=== PATIENT | female | born 1995 | race African-American/Black ===

== ENCOUNTER → 2023-09-29 | Outpatient (CLI) | payer BC, SELFPAY ==
[2023-10-03 12:09] LABS: HPV APTIMA, High Risk Negative (Negative)
== END | disposition home or self-care (01) ==
LOC: LABSPEC 16:03
PROVIDERS: Referring Provider Nurse Practitioner Family; Visit Provider Nurse Practitioner Family
DX: Z12.4 Encounter for screening for malignant neoplasm of cervix (principal)
CPT/HCPCS: 87624; 88175; G0145

== ENCOUNTER → 2024-01-07 | Outpatient (CLI) | payer BC, SELFPAY ==
[2024-01-07 10:22] LABS: Absolute Lymphocyte Count 1.21 X10^3/uL (0.83-4.51); Absolute Neutrophil Count 3.4 X10^3/uL (2.0-7.7); Basophil# 0.01 X10^3/uL; Basophil% 0.2 % (0-1); Eosinophil# 0.02 X10^3/uL; Eosinophils% 0.4 % (0-5); Hematocrit 35.7 % (37-47); Hemoglobin 11.8 g/dL (12.0-15.0); Lymphocyte # 1.21 X10^3/ul (0.83-4.51); Lymphocyte % 24.3 % (19-41); Mean Corp Hgb Conc 33.1 g/dL (32-36); Mean Corpuscular Hgb 28.4 pg (27.0-32.0); Mean Corpuscular Volume 85.8 fL (81-99); Mean Platelet Vol. 10.7 fl (6.2-12.0); Monocyte# 0.31 X10^3/uL; Monocyte% 6.2 % (0-10); NRBC Flagged by Analyzer 0 % (0-5); Neutrophil % 68.5 % (47-70); Platelet Count 267 K/mm3 (150-450); RBC Distribution Width CV 12.4 % (11.6-14.6); RBC Distribution Width SD 38.8 fl (35.1-43.9); Red Blood Count 4.16 M/mm3 (4.2-5.4)
[2024-01-07 11:38] LABS: HIV - WCH Non-Reactive (Nonreactive); Hepatitis B Surface Antigen Non-Reactive (Nonreactive); Hepatitis C Antibody Non-Reactive (Nonreactive); Rubella IgG Reactive (Nonreactive); Syphilis Antibodies Non-reactive
[2024-01-07 13:03] LABS: Amphetamine Urine VISTA NEGATIVE (<1000 ng/mL); Barbiturate Urine VISTA NEGATIVE (< 200 ng/mL); Benzodiazepine Urine VISTA NEGATIVE (< 200 ng/mL); Cocaine Urine VISTA NEGATIVE (< 300 ng/mL); Ecstacy Urine VISTA NEGATIVE (< 500 ng/mL); Methadone Urine VISTA NEGATIVE (< 300 ng/mL); PCP Urine VISTA NEGATIVE (< 25 ng/mL); THC Urine VISTA NEGATIVE (< 50 ng/mL); Vista UDS pH Range 7
[2024-01-08 20:08] LABS: Chlamydia By Nucleic Acid AMP Negative (Negative); Gonococcus By Nucleic Acid AMP Negative (Negative)
== END | disposition home or self-care (01) ==
PROVIDERS: Referring Provider Advanced Practice Midwife; Visit Provider Advanced Practice Midwife
DX: O09.90 Supervision of high risk pregnancy, unspecified, unspecified trimester (principal); O99.320 Drug use complicating pregnancy, unspecified trimester; F12.90 Cannabis use, unspecified, uncomplicated; Z3A.00 Weeks of gestation of pregnancy not specified; Z78.9 Other specified health status
CPT/HCPCS: 36415; 80307; 85025; 86703; 86762; 86780; 86787; 86803; 86850; 86900; 86901; 87086; 87340; 87491; 87591

== ENCOUNTER → 2024-05-06 | Outpatient (CLI) | payer BC, SELFPAY ==
[2024-05-06 13:01] LABS: Absolute Lymphocyte Count 1.19 X10^3/uL (0.83-4.51); Absolute Neutrophil Count 6.7 X10^3/uL (2.0-7.7); Basophil# 0.01 X10^3/uL; Basophil% 0.1 % (0-1); Eosinophil# 0.04 X10^3/uL; Eosinophils% 0.5 % (0-5); Hematocrit 34.5 % (37-47); Hemoglobin 11.7 g/dL (12.0-15.0); Lymphocyte # 1.19 X10^3/ul (0.83-4.51); Mean Corp Hgb Conc 33.9 g/dL (32-36); Mean Corpuscular Hgb 29.5 pg (27.0-32.0); Mean Corpuscular Volume 86.9 fL (81-99); Mean Platelet Vol. 10.8 fl (6.2-12.0); Monocyte# 0.55 X10^3/uL; Monocyte% 6.5 % (0-10); NRBC Flagged by Analyzer 0 % (0-5); Neutrophil # 6.65 X10^3/uL (2.7-7.7); Neutrophil % 78.2 % (47-70); Platelet Count 221 K/mm3 (150-450); RBC Distribution Width CV 13.3 % (11.6-14.6); RBC Distribution Width SD 42.2 fl (35.1-43.9); Red Blood Count 3.97 M/mm3 (4.2-5.4); White Blood Count 8.5 K/mm3 (4.4-11.0)
[2024-05-06 14:13] LABS: Glucose Challenge Gest 1H 50g 103 mg/dL (70-140)
[2024-05-07 10:03] LABS: HIV - WCH Non-Reactive (Nonreactive); Syphilis Antibodies Non-reactive
== END | disposition home or self-care (01) ==
LOC: LAB 12:36
PROVIDERS: Referring Provider Advanced Practice Midwife; Visit Provider Advanced Practice Midwife
DX: O09.92 Supervision of high risk pregnancy, unspecified, second trimester (principal); Z13.1 Encounter for screening for diabetes mellitus; Z3A.00 Weeks of gestation of pregnancy not specified
CPT/HCPCS: 36415; 82950; 85025; 86703; 86780

== ENCOUNTER → 2024-07-11 | Outpatient (CLI) | payer BC, SELFPAY | END | disposition home or self-care (01) | PROVIDERS: Visit Provider Advanced Practice Midwife | DX: O09.93 Supervision of high risk pregnancy, unspecified, third trimester (principal); Z3A.00 Weeks of gestation of pregnancy not specified | CPT/HCPCS: 87077; 87081 ==

== ENCOUNTER 2024-08-06 01:03 | Outpatient (CLI) | payer BC, SELFPAY ==
[2024-08-06 01:20] VITALS: BP 126/68; PULSE 79; RESP 14; TEMP 36.4
[2024-08-06 01:21] VITALS: PULSE 84; O2SAT 98
[2024-08-06 01:23] VITALS: BMI 30.9
[2024-08-06] MEDS: DiphenhydrAMINE 25 MG Capsule PO (07:20)
--- NOTE | 2024-08-06 17:54 | OB.TRI.PN ---
Progress Notes Date of Service: 08/06/24 Progress Note: Patient presents for triage evaluation secondary to uterine contractions at 39 weeks FHT: 135 Moderate variability reactive no decelerations category I tracing [place]: irregular Contractions Assessment and plan: therapeutic rest, minimal cervical change, would like minimal intervention, Reactive NST, reassuring maternal and status patient discharged to home to follow-up in office or with active labor. See problem list details for additional plan information. Charges/Coding Multi Select Codes Visit Charges Office Visit/Consults: 58164 OV L3 Est 20min Urinary/Genital Urinary/Genital CPT Codes: 01160-52 non-stress test Interp Assessment & Plan (1) Uterine contractions: COMMENT: minimal cervical change, d/c home (2) Positive GBS test: COMMENT: treat in labor (3) Marijuana smoker, episodic: COMMENT: last used 2 months ago, Not using now. Informed that random tox screens will occur during . (4) Supervision of high-risk : QUALIFIERS: Trimester: third trimester Qualified Code(s): O09.93 - Supervision of high risk , unspecified, third trimester COMMENT: PRR,, MARGY 08/09/24, boy Radha Vidal (5) : QUALIFIERS: Weeks of gestation: 39 weeks Qualified Code(s): Z3A.39 - 39 weeks gestation of COMMENT: discussed ntd, NIPT & Carrier testing declined.
== END 2024-08-06 11:30 | disposition home or self-care (01) ==
LOC: WPOUT 01:07 → WP 01:07
PROVIDERS: Visit Provider Advanced Practice Midwife
DX: O47.1 False labor at or after 37 completed weeks of gestation (principal); O99.820 Streptococcus B carrier state complicating pregnancy; O99.323 Drug use complicating pregnancy, third trimester; Z3A.39 39 weeks gestation of pregnancy; F12.90 Cannabis use, unspecified, uncomplicated
CPT/HCPCS: 59025; 59050; 99221; G0378

== ENCOUNTER 2024-08-07 08:31 | Inpatient (IN) | payer BC, SELFPAY ==
[2024-08-06 22:14] VITALS: BMI 30.4
[2024-08-06 22:27] VITALS: BP 143/94; PULSE 104
[2024-08-06 22:55] LABS: ROM Internal Control Test YES-OK TO RESULT pt. (Internal QC); ROM Patient Test Negative (Negative); Record Kit Lot#, ROM+ K3358
[2024-08-06] MEDS: LACTATED RINGERS 500 ML 999 ML IV (23:03)
[2024-08-06] MEDS: DiphenhydrAMINE 50 MG/ML Syringe IV (23:20)
[2024-08-06] MEDS: Acetaminophen 500 MG Tablet 1000 MG PO (23:20)
[2024-08-07] VITALS (54 sets, daily range): BP systolic 97–132; BP diastolic 49–82; PULSE 67–106; RESP 14–16; TEMP 36.5–37.3; O2SAT 96–100
[2024-08-07] MEDS: fentaNYL 100 MCG/2 ML Ampul 50 MCG IV ×3 (01:08→05:38)
--- NOTE | 2024-08-07 08:38 | HP.PCM.OB_ITS ---
HPI - General General Date of Admission: 08/07/24 Date of Service: 08/07/24 HPI Narrative ASPEN HEWITT, is a 29 F 40.0 weeks gestation who presents to unit in active labor Maternal Data Information MARGY Calculator Estimated Delivery Date Method Current WG Current Estimate 08/07/24 Ultrasound #1 40w 0d Other Estimates 08/09/24 LMP (Certain) 39w 5d Final MARGY: 08/07/24 Final MARGY Source: US >20 weeks Gestational age: 40.0 PFSH PFSH Medical History Screening for cervical cancer Hyperlipidemia Hypercholesterolemia Home Medications ?Medication ?Instructions ?Recorded ?Last Taken ?Type multivit-min no.71-iron fum 28 1 cap PO DAILY pregnanc y 12/25/23 08/06/24 History mg-folate no.1 1 mg-dha 300 mg capsule (PNV-Morris) Allergy/AdvReac Type Severity Reaction Status Date / Time No Known Allergies Allergy Verified 08/06/24 23:07 Family History Father Diabetes Grandfather Diabetes Heart disease Mother Hypertension Surgical History S/P wisdom tooth extraction Social History adopted: No household members: spouse housing: house current occupational status: employed 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 [employer] current occupational exposures/hazards: No pets and animals: Yes pets and animals: dog(s) leisure activities: sports and exercise history of recent travel: Yes ([place] , [facility] [place] 01/26, [place] 08/27) out of state: Yes out of country: Yes sexually active: Yes Smoking Status: Never smoker alcohol intake: current alcohol intake frequency: holidays/special occasions only details: Not while substance use type: marijuana well-balanced diet: daily or most days caffeine: Yes Type: coffee Number of servings: 1 eating out: rarely or never during the past year weight has: remained stable what type of physical activity do you participate in: weight training and other details: crossfit frequency: 5-6 times per week duration: 45-60 minutes/day steven/evangelical: Worship seatbelt use: always do you feel safe at home: Yes 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 extensive counseling regarding antibiotics for GBS. pain management options preferred: open to nitrous cut cord/dad catch: yes : yes PP control planned: discussed discussed possible routes of delivery and associated risks: discussed possible delivery modalities and possible indications for each including R/B/A of , VAVD, and CS. questions answered. special requests: please provide in depth counseling for any possible labor intervention to both to and , prefer natural support and minimal intervention Plans Covid status: [] Flu vaccine: declined Tdap vaccine: declines Rhogam:NA LARC form signed: yes movement and labor precautions reviewed. Problem list reviewed and updated with the most current plan of care details and appropriate orders placed. Relevant counseling for the gestational age provided. Continue routine care and follow up unless otherwise noted in visit notes/problem list details OB Flowsheet Initial Weight: 142 lb Date -?-?-?-?-?-?-?-?-?-?-?-?- EGA Weight BP Urine Prot -?-?-?-?-?-?-?-?-?-?-?-?- Glucose FHR FuHt Pres Dilation -?-?-?-?-?-?-?-?-?-?-?-?- Effaced St Visit Note 01/07/24 -?-?-?-?-?-?-?-?-?-?-?-?- 9w 4d 142 lb (+0 oz) 115/75 -?-?-?-?-?-?-?-?-?-?-?-?- 180 -?-?-?-?-?-?-?-?-?-?-?-?- KW- CRL cons wit h dates. declines NIPT at this time. 02/04/24 -?-?-?-?-?-?-?-?-?-?-?-?- 13w 4d 141 lb (-16 oz) 108/67 -?-?-?-?-?-?-?-?-?-?-?-?- 150 -?-?-?-?-?-?-?-?-?-?-?-?- SM- no vb crampi ng 03/01/24 -?-?-?--?-?-?-?-?-?-?-?-?- 17w 2d 144 lb 4 oz (+2 lb 4 oz) 112/68 Negative -?-?-?-?-?-?-?-?-?-?-?-?- Negative 145 -?-?-?-?-?-?-?-?-?-?-?-?- MH-No VB. No flu tters yet. Feels well. 04/05/24 -?-?-?-?-?-?-?-?-?-?-?-?- 22w 2d 151 lb 8 oz (+9 lb 8 oz) 108/68 Negative -?-?-?-?-?-?-?-?-?-?-?-?- Negative 150 22 -?-?-?-?-?-?-?-?-?-?-?-?- KW- no vb/lof/ct x. flutters noted. has repeat US for low lying placenta. 05/06/24 -?-?-?-?-?-?-?-?-?-?-?-?- 26w 5d 157 lb (+15 lb) 118/70 Negative -?-?-?-?-?-?-?-?-?-?-?-?- Negative 135 26 -?-?-?-?-?-?-?--?-?-?-?-?- LC- no vb/ctx/lo f. good fm. no concerns has rpt us scheduled for 05/17. glucola today. pending. 05/18/24 -?-?-?-?-?-?-?-?-?-?-?-?- 28w 3d 159 lb 4 oz (+17 lb 4 oz) 106/64 Negative -?-?-?-?-?-?-?-?-?-?-?-?- Negative 148 28 -?-?-?-?-?-?-?-?-?-?-?-?- MH-No VB, LOF. G ood FM. Reviewed MFM US:low lying placenta resolved. Larc. Tdap declines 06/02/24 -?-?-?-?-?-?-?-?-?-?-?-?- 30w 4d 160 lb 6 oz (+18 lb 6 oz) 113/74 Negative -?-?-?-?-?-?-?-?-?-?-?-?- Negative 145 30 -?-?-?-?-?-?-?-?-?-?-?-?- JV- no lof, vagi nal bleeding or dec fm. 06/15/24 -?-?-?-?-?-?-?-?-?-?-?-?- 32w 3d 163 lb 4 oz (+21 lb 4 oz) 113/66 Negative -?-?-?-?-?-?-?-?-?-?-?-?- Negative 140 31 -?-?-?-?-?-?-?-?-?-?-?-?- SM- no vb lof go od fm n oregualr ctx 06/29/24 -?-?-?-?-?-?-?-?-?-?-?-?- 34w 3d 166 lb 2 oz (+24 lb 2 oz) 115/74 Trace -?-?-?-?-?-?--?-?-?-?-?-?- Negative 135 34 -?-?-?-?-?-?-?-?-?-?-?-?- JV- no lof, vagi nal bleeding, or dec fm. no complaints. GBS next visit. 07/11/24 -?-?-?--?-?-?-?-?-?-?-?-?- 36w 1d 168 lb 8 oz (+26 lb 8 oz) 116/76 Negative -?-?-?-?-?-?-?-?-?-?-?-?- Negative 140 35 0 -?-?-?-?-?-?-?-?-?-?--?-?- KW- no vb/lof/ct x. good fm. discussed preferences today. FOB likely will need a lot of prepping for changes in plan. 07/20/24 -?-?-?-?-?-?-?-?-?-?-?-?- 37w 3d 170 lb (+28 lb) 97/55 Negative -?-?-?-?-?-?-?-?-?-?-?-?- Negative 140 36 -?-?-?-?-?-?-?-?-?-?-?-?- SM- no vb lof SM- no vb lof good fm no reg ular ctx discussed importance of PCN for GBS 07/27/24 -?-?-?-?-?-?-?-?-?-?-?-?- 38w 3d 171 lb 6 oz (+29 lb 6 oz) 128/78 Negative -?-?-?-?-?-?-?-?-?-?-?-?- Negative 140 38 Cephalic -?-?-?-?-?-?-?-?-?-?-?-?- JV- no lof, vagi nal bleeding, or dec fm. no complaints. 08/02/24 -?-?-?-?-?-?-?-?-?-?-?-?- 39w 2d 173 lb (+31 lb) 130/77 Negative -?-?-?-?-?-?-?-?-?-?-?-?- Negative 145 39 Cephalic 0 -?-?-?-?-?-?-?-?-?-?-?-?- KW- no vb/lof/ct x. good fm. labor precautions NST FHR Rate Baby A Baseline: 135 Variability:: Moderate Accelerations:: 15 x 15 Decelerations:: None NST Reactive:: Yes FHR Category:: Category I Uterine Activity:: 3-6 minutes ROS Constitutional Constitutional: Denies change in weight, fatigue, fever(s), headache(s), poor appetite or weakness Eyes Eyes: Denies blurry vision, change in vision, floaters, seeing flashes or spots in vision ENT HEENT: Denies dizziness, headache(s), loss taste/smell or sore throat Cardiovascular Cardiovascular: Denies chest pain, dizziness, dyspnea, irregular heart rhythm, lightheadedness, palpitations or rapid heart rate Respiratory/Chest Respiratory/Chest: Denies change in mental status, chest tightness, cough, dyspnea or breast pain Gastrointestinal Gastrointestinal: Denies anorexia, chewing difficulty, constipation, diarrhea or weight changes Genitourinary Genitourinary: Denies difficulty urinating, dysuria, flank pain, genital pain, urinary frequency or urinary urgency Musculoskeletal Musculoskeletal: Denies back pain, difficulty walking, extremity pain, joint pain, muscle cramps or muscle weakness Integumentary Integumentary: Denies lesions or unusual bruising Neurologic Neurologic: Denies abnormal movements, abnormal speech, dizziness, numbness, seizure-like activity, syncope or weakness Psychiatric Psychiatric: Denies behavioral changes, change in appetite, confusion, depression, homicidal ideation, suicidal ideation or suicidal thoughts Endocrine Endocrinology: Denies excessive sweating, polydipsia or polyuria Hematologic/Lymphatic Hematologic/Lymphatic: Denies anemia Allergic/Immunologic Allergic/Immunologic: Denies itchy eyes, lip swelling, throat swelling, tongue swelling or wheezing Vital Signs Vital Signs Vital Signs: 08/06/24 22:27 08/06/24 22:27 08/07/24 00:17 Temperature Temperature Source Pulse Rate 104 H Respiratory Rate Blood Pressure 143/94 H 124/82 H BP Systolic 143 124 BP Diastolic 94 82 Pulse Ox 08/07/24 00:17 08/07/24 04:32 08/07/24 04:32 Temperature Temperature Source Pulse Rate 106 H 86 Respiratory Rate Blood Pressure 125/80 H BP Systolic 125 BP Diastolic 80 Pulse Ox 08/07/24 04:39 08/07/24 04:39 08/07/24 04:39 Temperature 98.2 F Temperature Source Oral Pulse Rate Respiratory Rate 16 Blood Pressure BP Systolic BP Diastolic Pulse Ox 08/07/24 06:04 08/07/24 06:04 08/07/24 07:29 Temperature Temperature Source Pulse Rate 84 Respiratory Rate Blood Pressure 127/72 H BP Systolic 127 BP Diastolic 72 Pulse Ox 98 08/07/24 07:29 08/07/24 07:29 08/07/24 07:29 Temperature Temperature Source Pulse Rate 98 94 Respiratory Rate Blood Pressure BP Systolic BP Diastolic Pulse Ox 98 08/07/24 07:31 08/07/24 07:31 08/07/24 07:31 Temperature Temperature Source Oral Pulse Rate 93 Respiratory Rate 14 Blood Pressure BP Systolic BP Diastolic Pulse Ox 08/07/24 07:31 08/07/24 07:31 Temperature 97.7 F L Temperature Source Pulse Rate Respiratory Rate Blood Pressure BP Systolic BP Diastolic Pulse Ox 98 Weight Weight: 171 lb 8 oz Body Mass Index (BMI) 30.4 Physical Exam Const alert, oriented x3 and no apparent distress General Appearance: cooperative Orientation / Consciousness: awake HEENT normocephalic Neck full ROM Lymph Lymphatic: no lymphadenopathy noted Chest inspection of chest normal Resp normal respiratory effort and normal air movement Effort and Inspection: able to speak in complete sentences and symmetric chest movement GI soft to palpation and non-tender Inspection: gravid Palpation: soft; Negative for tender external exam normal Manual OB Exam: dilated 4, effaced 90 and station -1 Back/Spine normal to inspection Extremity normal to inspection and full ROM Skin no rashes or lesions noted Psych mental status grossly normal Appearance: grossly normal Speech: normal speech Labs Labs Labs: Blood Type AB POSITIVE Antibody Screen NEGATIVE Hct 34.5 % (37-47) L Hgb 11.7 g/dL (12.0-15.0) L Pap Smear Negative Syphilis Total Ab Non-reactive VZV IgG Antibody Rubella IgG Antibody Reactive (Nonreactive) Hep Bs Antigen Non-Reactive (Nonreactive) Hepatitis C Antibody Non-Reactive (Nonreactive) Chlamydia DNA (CHRISTELLE) Negative (Negative) N.gonorrhoeae DNA (CHRISTELLE) Negative (Negative) HIV 1&2 Antibody Non-Reactive (Nonreactive) Glucose 1 Hr 50 gm 103 mg/dL (70-140) Assessment & Plan (1) Active labor: PLAN: Patient presents IAL, plan expectant management for , pitocin/AROM PRN if needed. Pain management: plans no epidural. GBS positive-declines treatment Management of any complications: none I have reviewed the [facility] and made any clinically relevant updates. Dr Humphries aware of assessment, plan and admission. agrees with above (2) Uterine contractions: COMMENT: minimal cervical change, d/c home (3) Positive GBS test: COMMENT: treat in labor (4) Marijuana smoker, episodic: COMMENT: last used 2 months ago, Not using now. Informed that random tox screens will occur during . (5) Supervision of high-risk : QUALIFIERS: Trimester: third trimester Qualified Code(s): O09.93 - Supervision of high risk , unspecified, third trimester COMMENT: PRR,, MARGY 08/09/24, boy Radha Vidal (6) : QUALIFIERS: Weeks of gestation: 39 weeks Qualified Code(s): Z3A.39 - 39 weeks gestation of COMMENT: discussed ntd, NIPT & Carrier testing declined. Charges/Coding Multi Select Codes Urinary/Genital Urinary/Genital CPT Codes: No Charge
[2024-08-07 09:31] LABS: Absolute Neutrophil Count 10.4 X10^3/uL (2.0-7.7); Basophil# 0.01 X10^3/uL; Basophil% 0.1 % (0-1); Differential Indicated SCAN CRITERIA MET; Hematocrit 38.5 % (37-47); Lymphocyte % 8.2 % (19-41); Mean Corp Hgb Conc 33.8 g/dL (32-36); Mean Corpuscular Hgb 30.2 pg (27.0-32.0); Mean Corpuscular Volume 89.3 fL (81-99); Monocyte# 0.75 X10^3/uL; Monocyte% 6.2 % (0-10); NRBC Flagged by Analyzer 0 % (0-5); Neutrophil # 10.35 X10^3/uL (2.7-7.7); Neutrophil % 84.8 % (47-70); POSITIVE MORPHOLOGY YES; RBC Distribution Width CV 12.9 % (11.6-14.6); RBC Distribution Width SD 42.4 fl (35.1-43.9); Red Blood Count 4.31 M/mm3 (4.2-5.4); White Blood Count 12.2 K/mm3 (4.4-11.0)
[2024-08-07 09:32] LABS: Differential Comment SCANNED; Platelet Estimate ADEQUATE (ADEQ)
[2024-08-07] MEDS: Lactated Ringers 1,000 ML 999 ML IV (11:16)
[2024-08-07] MEDS: Lactated Ringers 1,000 ML 200 ML IV ×3 (11:47→19:13)
[2024-08-07 12:03] LABS: Platelet Count 201 K/mm3 (150-450)
[2024-08-07 12:13] LABS: Amphetamine Urine NEGATIVE (<1000 ng/mL); Barbiturate Urine NEGATIVE (< 200 ng/mL); Benzodiazepine Urine NEGATIVE (< 200 ng/mL); Cocaine Urine NEGATIVE (< 300 ng/mL); Methadone Urine NEGATIVE (< 300 ng/mL); Opiates Urine NEGATIVE (< 300 ng/mL); PCP Urine NEGATIVE (< 25 ng/mL); THC Urine NEGATIVE (< 50 ng/mL)
[2024-08-07] MEDS: fentaNYL-bupivacaine (epidural) 100 ML BAG EPIDURAL ×2 (12:30→17:01)
--- NOTE | 2024-08-07 13:59 | PN_ITS ---
Progress Note comfortable with epidural current tracing: FHT: 135 Moderate variability reactive occasional late decelerations after epidural placement resolved without intervention category II tracing. overall reassuring [place]: 6-8 minute Contractions Membranes:intact SVE:4/60/-2 per nursing and cervix feels swollen Discussion with patient about IV Benadryl and pitocin. agrees with both. comfortable with epidural A/P: Continue with position changes Titrate pitocin per protocol Epidural per anesthesia Declines ATB for GBS Anticipate Dr Humphries aware of above assessment and agrees with plan of care Assessment & Plan Assessment/Plan (1) Active labor: (2) Uterine contractions: (3) Positive GBS test: (4) Marijuana smoker, episodic: (5) Supervision of high-risk : QUALIFIERS: Trimester: third trimester Qualified Code(s): O09.93 - Supervision of high risk , unspecified, third trimester (6) : QUALIFIERS: Weeks of gestation: 39 weeks Qualified Code(s): Z3A.39 - 39 weeks gestation of Multi Select Codes Urinary/Genital Urinary/Genital CPT Codes: No Charge
[2024-08-07] MEDS: DiphenhydrAMINE 50 MG/ML Syringe IV (14:24)
[2024-08-07] MEDS: Oxytocin 15 Units/NS 250ml 15 UNITS/250 ML IV.SOLN 2 UNITS IV (14:25)
[2024-08-07 15:26] LABS: Syphilis Antibodies Nonreactive (Nonreactive)
--- NOTE | 2024-08-07 17:00 | PCM.PN.BLA ---
Progress Note comfortable with epidural current tracing: FHT: 140 Moderate variability reactive late decelerations category II tracing [place]: 2-6 minutes Contractions Membranes: ruptured for mec. IUPC placed and amnioinfusion started. SVE: reviewed tracing abnormalities since last note: collaboration with Dr Humphries at this time for Cat II FHT tracing. A/P: Continue with position changes Titrate pitocin per protocol Epidural per anesthesia Declines ATB for GBS Anticipate Dr Humphries aware of above assessment and agrees with plan of care Assessment & Plan Assessment/Plan (1) Active labor: (2) Uterine contractions: (3) Positive GBS test: (4) Marijuana smoker, episodic: (5) Supervision of high-risk : QUALIFIERS: Trimester: third trimester Qualified Code(s): O09.93 - Supervision of high risk , unspecified, third trimester (6) : QUALIFIERS: Weeks of gestation: 39 weeks Qualified Code(s): Z3A.39 - 39 weeks gestation of Multi Select Codes Urinary/Genital Urinary/Genital CPT Codes: No Charge
[2024-08-07] MEDS: Amnioinfusion- 0.9% NS 1,000 ML IV.SOLN. 1000 ML INTRA-UTER (17:01)
[2024-08-08] VITALS (17 sets, daily range): BP systolic 85–114; BP diastolic 59–80; PULSE 72–104; RESP 15–18; TEMP 36.3–37.2; O2SAT 98–100
[2024-08-08] MEDS: Cefazolin 2 GM in 0.9% Normal Saline (100mL Bag) 100 ML IV (00:59)
[2024-08-08] MEDS: Azithromycin 500 MG in 0.9% Normal Saline (250mL Bag) 250 ML 255 MG IV (01:12)
--- NOTE | 2024-08-08 01:39 | EX.PCM.OBRPT ---
Assessment & Plan (1) Active labor: (2) Uterine contractions: COMMENT: minimal cervical change, d/c home (3) Positive GBS test: COMMENT: treat in labor (4) Marijuana smoker, episodic: COMMENT: last used 2 months ago, Not using now. Informed that random tox screens will occur during . (5) Supervision of high-risk : QUALIFIERS: Trimester: third trimester Qualified Code(s): O09.93 - Supervision of high risk , unspecified, third trimester COMMENT: PRR,, MARGY 08/09/24, daniel Garcia Vidal (6) : QUALIFIERS: Weeks of gestation: 39 weeks Qualified Code(s): Z3A.39 - 39 weeks gestation of COMMENT: discussed ntd, NIPT & Carrier testing declined. (7) Category II heart rate tracing during labor and delivery: (8) delivery delivered: COMMENT: [facility] recurrent late decels placental insufficiency daniel Garcia 39 Maternal Data Information MARGY Calculator Estimated Delivery Date Method Current WG Current Estimate 08/07/24 Ultrasound #1 40w 1d Other Estimates 08/09/24 LMP (Certain) 39w 6d Operative Report (OB) Details Procedure Type: low transverse Date of Procedure: 08/08/24 Procedure Start Time: 00:51 Procedure Stop Time: 01:27 Pre-Operative Diagnosis: Other Other Pre-Operative diagnosis: see a/p comments Post-Operative Diagnosis: Same as Pre-operative diagnosis Type of Anesthesia: Epidural Special Medications: none Antibiotic Given: Ancef 2 grams IV x1 Drain: Rowe to straight drain Estimated Blood Loss: 900 Fluids Replaced: crystalloid Findings Description of surgery: Patient presented in active labor at 4 cm after a long prodromal stage. Patient was in severe pain and underwent epidural anesthesia. Patient made minimal change and therefore was augmented with Pitocin however she only made it to 4 milliunits of Pitocin and it had to be turned off due to recurrent late decelerations. Throughout the day the fetus was intolerant to multiple position changes. Ultimately the decision was made after multiple attempts to be able to start Pitocin to try and augment labor and arrest of dilation at 4 to 5 cm of dilation was present she developed recurrent late decelerations with minimal variability and was recommended to proceed with a low-transverse . Patient was taken back to the operating room. The patient was placed in the dorsal supine position with leftward tilt. Patient was prepped and draped in the normal sterile fashion. Pfannenstiel skin incision was made with the scalpel and carried through to the underlying layer of fascia with the scalpel. Fascia was nicked in the midline and the incision extended laterally. The rectus bellies were dissected off superiorly and inferiorly with out complication both sharply and bluntly. The peritoneum was entered digitally. The incision was stretched and a low transverse uterine incision was made with the scalpel. The 's head was delivered atraumatically followed by the anterior and posterior shoulders without complication the rest of the infant delivered. The cord was clamped and cut and the was handed off to awaiting nurse. The placenta was delivered spontaneously immediately following and was noted to be intact and have a three-vessel cord. The uterus was exteriorized cleared of all clots and debris, and the incision was closed in a single layer closure using #1 Monocryl. The ovaries and fallopian tubes were noted to be within normal limits. The uterus was returned to the maternal abdomen and gutters were cleared of all clots and debris. The peritoneum was closed with 3-0 Monocryl in a running fashion. Gloves were changed prior to fascial closure. Fascia was closed with 0 PDS in a running fashion. Subcutaneous tissue was copiously irrigated and the skin was closed with 3-0 Monocryl in a subcuticular fashion. There was a small scratch noted on the right superior aspect of the incision which was closed with Dermabond. Mepilex dressing was applied without complication. Patient was taken to recovery in stable condition. It was discussed with the patient that based on the clinical information obtained during this encounter, combined with her history, at this time I would recommend vaginal or delivery for future deliveries if further pregnancies are desired. Surgical findings: Placental insufficiency nl uterus tubes ovaries Presentation: Vertex Amniotic Membrane Rupture Type: Artificial Amniotic Fluid Description: Clear Placental Delivery Description: Spontaneous Specimen collected: Yes Description of specimen(s) removed: placenta and baby Cord Vessel Description: 3 Vessels Delayed Cord Clamping: Yes Streetcar Repairer Helper development intern: Yes Artificial Plastic Eye Maker: Jovanny Banda Tasks completed by first officer and flight instructor: Opening & closing, Retracting and Other (assisting in delivery of the ) Additional food and nutrition services assistant?: No Complications Complications: No Admit VTE Documentation VTE Present on Admission: No VTE Mechan Device Prophylaxis: SCD's Procedures Urinary/Genital [id number]: [id number] Delivery global pkg
--- NOTE | 2024-08-08 01:53 | DCINST_ITS ---
Discharge Instructions Diet Discharge Diet: No restrictions DC O2, CPAP, BIPAP needs Home O2 Discharge instructions: No Dressing / Incision Discharge Activity: May Not Drive (for 2 weeks or while taking narcotic pain medications.), May Shower and May Take a Tub Bath (in 7 days) May shower in (days): 0 May resume sexual activity in: 4-6 weeks Weight Bearing Status: Full weight bearing Lifting Restrictions: 20 pounds Dressing / Incision Call your doctor if your incision/area has: Continuous Slow Oozing, Sudden Increased Bleeding, Increased Pain/ Swelling, Increased Redness and Foul Smelling Discharge Call your doctor if you observe: Fever of 101 or Higher and Using more than 1 pad per hour (for 2 hours) Suture Line Care: Avoid Pulling/Pushing and Avoid Pinching/Bending Cleanse incision/area with: Soap & Water and Keep Dressing Clean & Dry Follow Up Care Please Follow Up With: Radha Humphries MD When: Call [phone] to make an appointment for an incision check in 1-2 weeks. Test Results: Test results from this visit will be discussed in further detail at your follow- up appointment, if applicable. Discharge Plan Admission Admit Date/Time: 08/07/24 08:31 Attending Provider: Radha Humphries Primary Care Provider: Care PhysicianRachel Primary Discharge Orders/Prescriptions Prescriptions: New oxycodone-acetaminophen [Percocet] 5-325 mg tablet 1 tab PO Q4H PRN (Reason: pain) 7 Days Qty: 20 0RF naproxen 500 mg tablet 500 mg PO BID PRN PRN (Reason: Pain) Qty: 30 1RF No Action PNV-[place] 28-1-300 mg capsule 1 cap PO DAILY Referrals / Follow Up: Care Physician,Rachel Primary [Primary Care Provider] - Disposition Disposition (needs filled in before D/C Order can be placed): Home, Self Care
--- NOTE | 2024-08-08 02:05 | PLAC_PTH ---
PATIENT: ASPEN HEWITT LOC: [facility] U#:[id number] AGE/SX: 29/F ROOM: WP004 RE08/07/[address]: Dr. Radha Humphries MD : 1995 BED: 1 DIS: 08/09/2024 SPEC #: [id number] RECD: 08/08/24 05:37 STATUS: ADRIENNE CAOMarcelle #: [id number] GEOVANNA: 08/08/24 02:[address]: Radha Humphries DEPT: SURGICAL PATHOLOGY RECD BY: Daniel Berg ENTERED: 08/08/24 07:33 SP TYPE: PLACENTA OT DR: No Primary Care Phys Tissues: A - Placenta, NOS Procedures: Surgery Specimen Level V HEADER OPERATION: Primary section PRE-OP DIAGNOSIS: section category 2 tracing TISSUE SUBMITTED: A- Placenta MICROSCOPIC DIAGNOSIS A. Placenta, primary section: * 3rd trimester mi placenta (39 weeks), 361.4 grams (less than 10th percentile). * Increased syncytial knots (Audra-Dao change). * Acute chorioamnionitis. * 3 vessel umbilical cord with focal mild acute funisitis. * Focal peripheral infarction, less than 5% of the disc involved. * Pigmented macrophages noted at the surface consistent with meconium staining. MICROSCOPIC DESCRIPTION Slides are reviewed. GROSS DESCRIPTION A. Received in formalin in a container labeled with the patient's name, date of , and with no further designation is a 16.5 x 12.5 x 2.3 cm mi and discoid placenta with a trimmed weight of 361.4 g. The eccentrically located white-chou umbilical cord exhibits 3 vessels and is 34 cm in length by 1 cm in diameter. There are approximately 7 coils per 10 cm. The membranes are partially stripped, mucoid and slippery, with a 90% marginal insertion and 10% circummarginate insertion. The surface is blue-hines with prominent vasculature and focal green-hines possible meconium staining. The maternal surface displays red-chou cotyledons that appear complete with a scant amount of easily removed blood clot material. Serial sections reveal a 3.4 x 3.0 x 1.5 cm white-chou rubbery focus at the periphery comprising less than 5% of the cut surfaces. The remaining cut surfaces are red, spongy, and congested. Chucking Machine Set Up Operator Tool sections:A1. Umbilical cord and membrane roll with rubbery focus at peripheryA2. Full-thickness section with rubbery focus at peripheryA3. Full-thickness section with possible green-hines meconium staining of surface [facility] 08-08-2024 CPT:18560
[2024-08-08] MEDS: Oxytocin 15 Units/NS 250ml 15 UNITS/250 ML IV.SOLN 83 UNITS IV (02:34)
[2024-08-08] MEDS: 0.9% Saline Lock 10 ML Syringe IV ×2 (02:45→08:47)
[2024-08-08] MEDS: Ketorolac 30 MG/ML Syringe IV ×2 (02:45→08:47)
[2024-08-08] MEDS: Acetaminophen 500 MG Tablet 1000 MG PO ×3 (05:26→17:48)
[2024-08-08] MEDS: Senna/Docusate Sodium 1 Tablet PO (09:57)
[2024-08-08] MEDS: Naproxen 500 MG Tablet PO (15:30)
[2024-08-09] MEDS: Naproxen 500 MG Tablet PO ×2 (00:01→08:40)
[2024-08-09 02:45] VITALS: BP 101/57; PULSE 80; RESP 16; TEMP 36.6; O2SAT 100
[2024-08-09 05:58] LABS: Hematocrit 31.6 % (37-47); Hemoglobin 10.9 g/dL (12.0-15.0); Mean Corp Hgb Conc 34.5 g/dL (32-36); Mean Corpuscular Hgb 30.4 pg (27.0-32.0); Mean Platelet Vol. 10.9 fl (6.2-12.0); Platelet Count 182 K/mm3 (150-450); RBC Distribution Width CV 12.7 % (11.6-14.6); RBC Distribution Width SD 40.7 fl (35.1-43.9); Red Blood Count 3.59 M/mm3 (4.2-5.4)
[2024-08-09] MEDS: Acetaminophen 500 MG Tablet 1000 MG PO ×3 (06:14→14:10)
[2024-08-09 08:30] VITALS: BP 90/63; PULSE 75; RESP 16; TEMP 36.4; O2SAT 100
[2024-08-09] MEDS: Senna/Docusate Sodium 1 Tablet PO (08:40)
--- NOTE | 2024-08-09 08:43 | PN.OBGYN_ITS ---
Subjective Subjective Patient doing well without complaints. Tolerating PO. Ambulating and voiding without difficulty. Feeding well. Denies chest pain, shortness of breath, calf pain/swelling, fevers, chills, lightheadedness. Objective Data Objective Data Vital Signs: Vital Signs Temp Pulse Resp BP Pulse Ox O2 Del Method 97.5 F L 75 16 90/63 100 Room Air 08/09/24 08:30 08/09/24 08:30 08/09/24 08:30 08/09/24 08:30 08/09/24 08:30 08/09/24 08:30 Oxygen Delivery Method Room Air Weight: 171 lb 8 oz Body Mass Index (BMI) 30.4 Intake & Output: Intake and Output for Last 24 Hours 08/07/24 08/08/24 08/09/24 23:59 23:59 23:59 Intake Total 2394.99 / 2394.99 1615 / 1615 Output Total 900 / 900 3600 / 3900 300 / 300 Balance 1494.99 / 1494.99 -1985 / -2285 -300 / -300 Lab / Micro Data Attestation: I reviewed the patient's lab results. 08/09/24 05:50 Labs: Laboratory Results - last 24 hr 08/09/24 05:50: WBC 13.0 H, RBC 3.59 L, Hgb 10.9 L, Hct 31.6 L, MCV 88.0, MCH 30.4, MCHC 34.5, RDW Std Deviation 40.7, RDW Coeff of Estuardo 12.7, Plt Count 182, MPV 10.9 ROS Constitutional Constitutional: Reports systems reviewed and no addt'l complaints, except as documented; Denies anorexia or headache(s) Cardiovascular Cardiovascular: Reports systems reviewed and no addt'l complaints, except as documented; Denies dizziness, dyspnea, nausea or tachypnea Respiratory/Chest Respiratory/Chest: Reports systems reviewed and no addt'l complaints, except as documented; Denies cough, dyspnea, shortness of breath at rest or tachypnea Gastrointestinal Gastrointestinal: Reports systems reviewed and no addt'l complaints, except as documented; Denies abdominal pain, constipation or nausea Genitourinary Genitourinary: Reports systems reviewed and no addt'l complaints, except as documented; Denies burning urination, difficulty urinating, dysuria, urinary frequency or urinary incontinence Musculoskeletal Musculoskeletal: Reports systems reviewed and no addt'l complaints, except as documented Integumentary Integumentary: Reports systems reviewed and no addt'l complaints, except as documented Neurologic Neurologic: Reports systems reviewed and no addt'l complaints, except as documented; Denies abnormal speech, dizziness or headache(s) Psychiatric Psychiatric: Reports systems reviewed and no addt'l complaints, except as documented Endocrine Endocrinology: Reports systems reviewed and no addt'l complaints, except as documented Hematologic/Lymphatic Hematologic/Lymphatic: Reports systems reviewed and no addt'l complaints, except as documented Physical Exam Const alert, oriented x3 and no apparent distress Neck full ROM Resp normal respiratory effort, normal air movement and no retractions Effort and Inspection: able to speak in complete sentences and symmetric chest movement GI soft to palpation Inspection: incision intact Bladder / Kidney Exam: bladder normal to palpation Uterus Palpation: uterus fundus firm Extremity normal to inspection and full ROM Psych mental status grossly normal, thought process normal and cooperative Assessment & Plan (1) delivery delivered: COMMENT: LTCS recurrent late decels placental insufficiency daniel Garcia 39 PLAN: s/p LTCS PPD # 1 1. routine post care 2. breast feeding- support given 3. rh positive 4. rubella immune 5. Discharge home (2) Category II heart rate tracing during labor and delivery: (3) Active labor: (4) Uterine contractions: COMMENT: minimal cervical change, d/c home (5) Positive GBS test: COMMENT: treat in labor (6) Marijuana smoker, episodic: COMMENT: last used 2 months ago, Not using now. Informed that random tox screens will occur during . (7) Supervision of high-risk : QUALIFIERS: Trimester: third trimester Qualified Code(s): O09.93 - Supervision of high risk , unspecified, third trimester COMMENT: PRR,, MARGY 08/09/24, boy Radha Vidal (8) : QUALIFIERS: Weeks of gestation: 39 weeks Qualified Code(s): Z 3A.39 - 39 weeks gestation of COMMENT: discussed ntd, NIPT & Carrier testing declined. Charges/Coding Multi Select Codes Urinary/Genital Urinary/Genital CPT Codes: No Charge
--- NOTE | 2024-08-09 08:44 | PCM.DC.SUM ---
Providers Date of Admission: 08/07/24 Date of Discharge: 08/09/24 Primary Care Physician: No Primary Care Phys Reason For Visit: C SECTION Diagnosis Discharge Diagnosis (1) delivery delivered: Status: Acute Code(s): O82 - Encounter for delivery without indication Plan: s/p LTCS PPD # 1 1. routine post care 2. breast feeding- support given 3. rh positive 4. rubella immune 5. Discharge home (2) Category II heart rate tracing during labor and delivery: Status: Acute Code(s): O76 - Abnormality in heart rate and rhythm complicating labor and delivery (3) Active labor: Status: Acute (4) Uterine contractions: Status: Acute Code(s): O47.9 - False labor, unspecified (5) Positive GBS test: Status: Acute Code(s): B95.1 - Streptococcus, group B, as the cause of diseases classified elsewhere (6) Marijuana smoker, episodic: Status: Acute Code(s): F12.90 - Cannabis use, unspecified, uncomplicated (7) Supervision of high-risk : Status: Acute Code(s): O09.90 - Supervision of high risk , unspecified, unspecified trimester Qualifiers: Trimester: third trimester Qualified Code(s): O09.93 - Supervision of high risk , unspecified, third trimester (8) : Status: Acute Code(s): Z34.90 - Encounter for supervision of normal , unspecified, unspecified trimester Qualifiers: Weeks of gestation: 39 weeks Qualified Code(s): Z3A.39 - 39 weeks gestation of Medications at Discharge Home Medications multivit-min no.71-iron fum 28 mg-folate no.1 1 mg-dha 300 mg capsule (PNV-[place]) 1 cap PO DAILY 12/25/23 naproxen 500 mg tablet 500 mg PO BID PRN PRN Pain #30 tabs 08/08/24 oxycodone-acetaminophen 5 mg-325 mg tablet (Percocet) 1 tab PO Q4H PRN pain 7 days #20 tabs 08/08/24 Hospital Course Operations section Procedures None Summary of Care Provided Minutes Spent on Discharge: 30 Physical Exam Const alert, oriented x3 and no apparent distress Neck full ROM Resp normal respiratory effort, normal air movement and no retractions Effort and Inspection: able to speak in complete sentences and symmetric chest movement GI soft to palpation Inspection: incision intact Bladder / Kidney Exam: bladder normal to palpation Uterus Palpation: uterus fundus Extremity normal to inspection and full ROM Psych mental status grossly normal, thought process normal and cooperative Weight / BMI Weight Weight: 171 lb 8 oz Body Mass Index (BMI) 30.4 ABG / Lab / Microbiology Data 08/09/24 05:50 Laboratory: Laboratory Results - last 24 hr 08/09/24 05:50: WBC 13.0 H, RBC 3.59 L, Hgb 10.9 L, Hct 31.6 L, MCV 88.0, MCH 30.4, MCHC 34.5, RDW Std Deviation 40.7, RDW Coeff of Estuardo 12.7, Plt Count 182, MPV 10.9 D/C Instructions Discharge Diet: No restrictions May shower in (days): 0 May resume sexual activity in: 4-6 weeks Weight Bearing Status: Full weight bearing Call your doctor if your incision/area has: Continuous Slow Oozing, Sudden Increased Bleeding, Increased Pain/ Swelling, Increased Redness and Foul Smelling Discharge Call your doctor if you observe: Fever of 101 or Higher and Using more than 1 pad per hour (for 2 hours) Suture Line Care: Avoid Pulling/Pushing and Avoid Pinching/Bending Remove Dressing in: 1 week Cleanse incision/area with: Soap & Water and Keep Dressing Clean & Dry DC O2, CPAP, BIPAP Needs Home O2 Discharge instructions: No DC home with Oxygen: No Please Follow Up With: Radha Humphries MD When: Call [phone] to make an appointment for an incision check in 1-2 weeks. Meaningful Use Info Meaningful Use Meaningful Use Diagnoses (Choose all that apply): None applicable Ischemic Stroke Statin Dosing Therapy Reference: STATIN DOSE THERAPY REFERENCE: * Patients > 75 years receive moderate or high dose statin therapy. * Patients 75 years or YOUNGER should receive HIGH intensity statin dose unless contraindicated. You will be required to document reason for non-treatment if statin daily dose does not meet guidelines. HIGH DOSE STATIN THERAPY DAILY Atorvastatin > than or = to 40 mg Rosuvastatin > than or = to 20 mg Amlodipine + Atorvastatin > than or = to 2.5/40 mg Ezetimibe + Simvastatin 10/80 mg Simvastatin 80mg Discharge Plan Admission Admit Date/Time: 08/07/24 08:31 Attending Provider: Radha Humphries Primary Care Provider: Care Physician,Rachel Primary Discharge Orders/Prescriptions Prescriptions: New oxycodone-acetaminophen [Percocet] 5-325 mg tablet 1 tab PO Q4H PRN (Reason: pain) 7 Days Qty: 20 0RF naproxen 500 mg tablet 500 mg PO BID PRN PRN (Reason: Pain) Qty: 30 1RF No Action PNV-[place] 28-1-300 mg capsule 1 cap PO DAILY Referrals / Follow Up: Care Physician,No Primary [Primary Care Provider] - Disposition Disposition (needs filled in before D/C Order can be placed): Home, Self Care Charges/Coding Multi Select Codes Urinary/Genital Urinary/Genital CPT Codes: No Charge
[2024-08-09 13:24] VITALS: BP 108/76; PULSE 71; RESP 16; TEMP 36.4; O2SAT 100
[2024-08-09] MEDS: oxyCODONE 5 MG Tablet PO (14:10)
[2024-08-14 07:16] LABS: Pathology Specimen OB SEE PATHOLOGY REPORT
== END 2024-08-09 15:20 | disposition home or self-care (01) | DRG 788 ==
LOC: WPOUT 08:42 → WP 08:42
PROVIDERS: Advanced Practice Midwife; Admitting Provider Obstetrics & Gynecology; Referring Provider Obstetrics & Gynecology; Visit Provider Obstetrics & Gynecology
DX: O99.324 Drug use complicating childbirth (principal); O36.5130 Maternal care for known or suspected placental insufficiency, third trimester, not applicable or unspecified; F12.90 Cannabis use, unspecified, uncomplicated; O99.824 Streptococcus B carrier state complicating childbirth; Z3A.40 40 weeks gestation of pregnancy; O76 Abnormality in fetal heart rate and rhythm complicating labor and delivery; Z37.0 Single live birth
CPT/HCPCS: 59025; 59050; 80307; 84112; 85025; 85027; 85049; 86780; 86850; 86900; 86901; 88307; 99221; A4216; G0378; J2405